=== PATIENT | female | born 1990 | race Caucasian/White ===

== ENCOUNTER 2016-06-12 17:27 | Emergency (ER) | payer MEDICAID ==
[~2016-06-12] VITALS: Ht 165.1 cm; Wt 66.5 kg
[2016-06-12 17:28] VITALS: BP 138/87
[2016-06-12 18:26] LABS: HEMOGLOBIN 12.7 g/dL (11.7-16.4)
[2016-06-12] MEDS ORDERED: METH40TA3 PO (18:35)
== END 2016-06-12 19:54 | disposition home or self-care (01) ==
LOC: ED 17:53
DX: N93.8 Other specified abnormal uterine and vaginal bleeding (principal)
CPT/HCPCS: 36415; 84703; 85025; 99284

== ENCOUNTER 2018-09-11 13:05 | Emergency (ER) | payer MEDICAID ==
[~2018-09-11] VITALS: Ht 165.1 cm; Wt 66.6 kg
[~2018-09-11 13:05] MED LIST: METH40TA3 PO
[2018-09-11 13:57] LABS: BASOPHILS # (AUTO) 0.02 x10^3/uL (0-0.1); BASOPHILS % (AUTO) 0 % (0-1); EOSINOPHILS # (AUTO) 0.08 x10^3/uL (0-0.4); EOSINOPHILS % (AUTO) 1 % (1-7); LYMPHOCYTES # (AUTO) 2.05 x10^3/uL (1-3.4); LYMPHOCYTES % (AUTO) 31 % (22-44); MD NO; MEAN CORPUSCULAR HEMOGLOBIN 31.7 pg (27.0-34.8); MEAN CORPUSCULAR VOLUME 93.3 fL (80-100); MEAN PLATELET VOLUME 9.8 fL (7.4-10.4); MONOCYTES # (AUTO) 0.38 x10^3/uL (0.2-0.8); MONOCYTES % (AUTO) 6 % (2-9); NEUTROPHILS # (AUTO) 4.18 x10^3/uL (1.8-6.8); NEUTROPHILS % (AUTO) 62 % (42-75); PLATELET COUNT 237 x10^3/uL (130-400); RED CELL DISTRIBUTION WIDTH 12.3 % (9.6-15.2)
[2018-09-11 14:53] LABS: CULTURE INDICATED? NO; MICROSCOPIC AUTO
--- NOTE | 2018-09-11 14:54 | NUR ---
DATA PROCESSOR: Attempted to room patient, not in lobby at this time.
--- NOTE | 2018-09-11 14:59 | NUR ---
CLAIMS COUNSEL: Patient in ultrasound to be roomed after testing.
--- NOTE | 2018-09-11 15:23 | NUR ---
PT TO ED FOR VB STARTING AT 1200 TODAY. PT 10 WEEKS WITH TWINS. PT STATES VB IS PINK IN COLOR AND NONODOROUS. PT CONNECTED TO MONIOTRS. VSS. US AND LABS COMPLETE. AWAITING EDMD ASSESSMENT.
[2018-09-11] MEDS ORDERED: CEFTRIAXONE 250 MG IM ONE (16:30)
[2018-09-11] MEDS ORDERED: AZITHROMYCIN 500 MG TABLET PO ONE (16:30)
[2018-09-11] MEDS ORDERED: CEFTRIAXONE 250 MG ONE (16:31)
[2018-09-11] MEDS ORDERED: AZITHROMYCIN 250 MG TABLET ONE (16:31)
[2018-09-11 16:36] VITALS: BP 105/64
--- NOTE | 2018-09-11 16:47 | NUR ---
pt refused pelvic exam.
== END 2018-09-11 16:49 | disposition home or self-care (01) ==
LOC: ED 15:30
DX: O20.0 Threatened abortion (principal); Z3A.10 10 weeks gestation of pregnancy
CPT/HCPCS: 36415; 76801; 81001; 84702; 85025; 86901; 96372; 99284; J0696

== ENCOUNTER 2019-02-23 00:26 | Outpatient (CLI) | payer MEDICAID | END 2019-02-23 00:30 | disposition home or self-care (01) | LOC: LDOP 00:26 | PROVIDERS: ATTEND Obstetrics & Gynecology | DX: Z02.9 Encounter for administrative examinations, unspecified (principal) ==

== ENCOUNTER 2019-05-01 01:53 | Emergency (ER) | payer MEDICAID ==
[~2019-05-01] VITALS: Ht 165.1 cm; Wt 66.8 kg
[2019-05-01 01:57] VITALS: BP 128/94
== END 2019-05-01 02:15 ==
LOC: ED 02:05
DX: F10.129 Alcohol abuse with intoxication, unspecified (principal); R00.0 Tachycardia, unspecified; F17.200 Nicotine dependence, unspecified, uncomplicated; Y90.9 Presence of alcohol in blood, level not specified
CPT/HCPCS: 99283